=== PATIENT | male | born 1970 | race Caucasian/White ===

== ENCOUNTER 2020-05-16 17:07 | Emergency (ER) | payer MEDICAID, OTHER ==
[2020-05-16] MEDS ORDERED: LIDOCAINE 1%-EPI 1:100000 20 ML MDV SUBQ STA (17:28)
--- NOTE | 2020-05-16 18:37 | ED Physician Documentation ---
PD HPI UPPER EXT INJURY - Stated complaint Stated Complaint: LEFT HAND LAC - Chief complaint Chief Complaint: Laceration - History obtained from History obtained from: Patient - History of Present Illness Location: Left, Finger (Index) Type of injury: Laceration Where injury occurred: Home Timing - onset: How many hours ago (1), Today Timing - duration: Hours (1) Timing - details: Abrupt onset Pain level max: 3 Pain level now: 3 Improved by: Rest Worsened by: Moving, Palpating Associated symptoms: No: Weakness, Numbness, Tingling, Swelling Similar symptoms before: Has not had sx before Recently seen: Not recently seen - Additonal information Additional information: Last tetanus shot was 2 years ago Review of Systems Neurologic: denies: Focal weakness, Numbness PD PAST MEDICAL HISTORY - Past Medical History Cardiovascular: None Respiratory: None Derm: None - Past Surgical History Past Surgical History: Yes General: Appendectomy - Present Medications Home Medications: Ambulatory Orders Medication Instructions Recorded Confirmed No Known Home Medications 05/16/20 05/16/20 - Allergies Allergies/Adverse Reactions: Allergies Allergy/AdvReac Type Severity Reaction Status Date / Time No Known Drug Allergies Allergy Verified 05/16/20 17:10 - Social History Does the pt smoke?: No Smoking Status: Never smoker Does the pt drink ETOH?: No Does the pt have substance abuse?: No - Immunizations Immunizations are current?: Yes - POLST Patient has POLST: No PD ED PE NORMAL - Vitals Vital signs reviewed: Yes - General General: Alert and oriented X 3, No acute distress - Derm Derm: Warm and dry - Extremities Extremities: Other (L index finger - dorsum of the index finger, just distal to MCP joint. NVI. weakness with extension against resistance. ) - Neuro Neuro: Alert and oriented X 3 Results - Vitals Vitals: Vital Signs - 24 hr 05/16/20 05/16/20 17:11 18:43 Temperature 37.0 C Heart Rate 73 87 Respiratory 19 17 Rate Blood Pressure 137/99 H 136/89 H O2 Saturation 100 100 Oxygen O2 Source Room air Procedures - Laceration (location) L index Length in cm: 2 Wound type: Linear, Into subcut fat, Clean Neurovascular status: Sensory intact, Motor intact, Vascular intact Tendon involvement: Tendon Injury (appears to have some tendon injury, unable to clearly see the tendon.) Anesthesia: Lidocaine 1% with epi Wound Preparation: Irrigated copiously NS, Wound explored, To the base Skin layer closure: Nylon, Interrupted, Size #-0 - enter number (4) Other: Patient tolerated well, No complications, Neurovascular intact, Dressing applied, Tetanus UTD Complexity: Simple PD MEDICAL DECISION MAKING - ED course Complexity details: considered differential, d/w patient ED course: 49-year-old male with a left index finger laceration on the dorsum of the hand. Appears to have some tendon involvement, though I cannot clearly visualize this on evaluation of the wound. Does have weakness with extension against resistance. Discussed the case with Dr. Pandya, orthopedics who will follow up the patient in the office. We will close the skin today and place him in a splint. Will need reevaluation. Warnings of infection and instructions on wo und care given at bedside. Also counseled on how to minimize scarring. Patient counseled regarding signs and symptoms for which I believe and urgent re- evaluation would be necessary. Patient with good understanding of and agreement to plan and is comfortable going home at this time This document was made in part using voice recognition software. While efforts are made to proofread this document, sound alike and grammatical errors may occur. Departure - Departure Disposition: 01 Home, Self Care Clinical Impression: Finger laceration involving tendon Qualifiers: Encounter type: initial encounter Qualified Code(s): S61.219A - Laceration without foreign body of unspecified finger without damage to nail, initial encounter Condition: Good Instructions: ED Laceration Hand Follow-Up: Carlos Pandya MD [Provider Admit Priv/Credential] - [facility] [Provider Group] Comments: Keep the splint on until released by orthopedics. They will need to reexamine you and likely repair the tendon. Return if you worsen. I spoke with Dr. Ya rai. Discharge Date/Time: 05/16/20 18:50
[2020-05-16] MEDS ORDERED: BACITRACIN ZINC OINT 1 PACKET TOP STA (18:38)
[2020-05-16 18:43] VITALS: BP 136/89
== END 2020-05-16 18:50 | disposition home or self-care (01) ==
LOC: ED 17:07
DX: S61.211A Laceration without foreign body of left index finger without damage to nail, initial encounter (principal); S66.902A Unspecified injury of unspecified muscle, fascia and tendon at wrist and hand level, left hand, initial encounter; W22.09XA Striking against other stationary object, initial encounter; Y92.009 Unspecified place in unspecified non-institutional (private) residence as the place of occurrence of the external cause
CPT/HCPCS: 12001; 99281; 99283

== ENCOUNTER 2020-06-01 07:08 | Outpatient (CLI) | payer MEDICAID ==
--- NOTE | 2020-06-01 11:27 | MRI Report ---
PROCEDURE: Hand LT W/O INDICATIONS: FINGER LACERATION W/TENDON INVOLMENT TECHNIQUE: Noncontrast coronal T1 spin echo and T2 fast spin echo with fat saturation, axial proton density fast spin echo and T2 fast spin echo with fat saturation, sagittal T1 spin echo and STIR through the hand and fingers. COMPARISON: None FINDINGS: Image quality: Excellent. Bones: The bones are normally aligned, without marrow contusions or fractures. No intra-osseous les ions. Soft tissues: There is soft tissue edema involving the dorsal aspect of the index finger centered at the level of the MCP joint. There is complete rupture of the extensor indicis tendon, for example im age 1104/1001. The flexor tendons appear grossly intact. However, there is mild middle finger flexor tenosynovitis. IMPRESSION: Complete rupture/laceration of the extensor indicis tendon. Associated soft tissue edema and swelling . Mild middle finger flexor tenosynovitis, technically age indeterminate Reviewed by: Porfirio Marcum MD on 06/01/2020 11:25 AM PST Approved by: Porfirio Marcum MD on 06/01/2020 11:25 AM PST Station ID: [id number]
== END 2020-06-01 07:09 | disposition home or self-care (01) ==
LOC: DI 07:08
PROVIDERS: ATTEND Orthopaedic Surgery
DX: S66.321A Laceration of extensor muscle, fascia and tendon of left index finger at wrist and hand level, initial encounter (principal); M65.842 Other synovitis and tenosynovitis, left hand

== ENCOUNTER 2022-09-03 01:23 | Emergency (ER) | payer MEDICAID ==
--- NOTE | 2022-09-03 02:44 | ED Physician Documentation ---
PD HPI CHEST PAIN - Stated complaint Stated Complaint: RT RIB INJ - Chief complaint Chief Complaint: Trauma Ch/Bk - History obtained from History obtained from: Patient - Additional information Additional information: HPI from patient. c/o sudden onset right lower lateral chest wall pain three days ago when he slipped while walking outside of his house, striking right chest on rocks. He says the pain had been tolerable until earlier this evening when he sneezed, causing sudden significant increase in the pain . Pain is exacerbated with palpation and deep inspiration but denies shortness of breath Review of Systems Cardiac: reports: Chest pain / pressure (right chest wall pain) Respiratory: denies: Dyspnea, Cough, Hemoptysis, Wheezing GI: denies: Abdominal Pain PD PAST MEDICAL HISTORY - Past Medical History Cardiovascular: None Respiratory: None Derm: None - Past Surgical History Past Surgical History: Yes General: Appendectomy - Present Medications Home Medications: Ambulatory Orders Medication Instructions Recorded Confirmed Oxycodone HCl/Acetaminophen 1 - 2 each PO Q6H PRN #14 tablet 09/03/22 [Percocet 5-325 mg Tablet] - Allergies Allergies/Adverse Reactions: Allergies Allergy/AdvReac Type Severity Reaction Status Date / Time No Known Drug Allergies Allergy Verified 09/03/22 01:33 - Social History Does the pt smoke?: No Smoking Status: Never smoker Does the pt drink ETOH?: No Does the pt have substance abuse?: No - Immunizations Immunizations are current?: Yes - POLST Patient has POLST: No PD ED PE NORMAL - Vitals Vital signs reviewed: Yes - General General: Alert and oriented X 3, No acute distress, Well developed/nourished - Respiratory Respiratory: No respiratory distress, Clear bilaterally - Abdomen Abdomen: Soft, Non distended PD ED PE EXPANDED - Cardiac Cardiac: Chest wall TTP (right lower anterolateral chest wall TTP without crepitus) - Abdomen Abdomen: Tender to palpation, RUQ. No: Rebound, Guarding Results - Vitals Vitals: Oxygen O2 Source Room air - Labs Labs: Laboratory Tests 09/03/22 09/03/22 03:00 03:00 WBC 7.9 RBC 4.12 L Hgb 13.2 L Hct 39.3 L MCV 95.4 H MCH 32.0 H MCHC 33.6 RDW 12.7 Plt Count 216 MPV 8.8 Neut # (Auto) 5.1 Lymph # (Auto) 1.9 [place] # (Auto) 0.6 Eos # (Auto) 0.2 Baso # (Auto) 0.1 Absolute Nucleated RBC 0.00 Nucleated RBC % 0.0 Sodium 138 Potassium 3.6 Chloride 102 Carbon Dioxide 28 Anion Gap 8.0 BUN 14 Creatinine 0.9 Estimated GFR (MDRD) 89 Glucose 117 H Calcium 9.2 Total Bilirubin 0.4 AST 17 ALT 22 Alkaline Phosphatase 65 Total Protein 7.4 Albumin 4.2 Globulin 3.2 Albumin/Globulin Ratio 1.3 Lipase 36 - Rads (name of study) right ribs with PA chest Relevant Findings:: Prelim report reviewed, EMP independent interpretation of test (I reviewed these images and my interpretation is fractures of right 9th, 10th, and 11th ribs, no pneumothorax), See rad report CT A/P with IV contrast Relevant Findings:: Prelim report reviewed, EMP independent interpretation of test (I reviewed these images and my interpretation is minimally displaced fractures of 9th, 10th, and 11th ribs, no pneumothorax , no evidence of intraabdominal injury ), See rad report PD Medical Decision Making - ED course Complexity details: reviewed results, re-evaluated patient, considered differential, d/w patient ED course: fractures of 9th, 10th, and 11th right ribs noted on imaging (as above) without evidence of other injury including pneumothorax , intra-abdominal injury such as liver injury. IV established for IV contrast (for abdominal/pelvis CT), and basic blood tests were sent. No concerning findings on CBC, ER abdominal panel. He is given 1 mg dilaudid IV with good pain control, and 10mg PO oxycodone prior to d/c for gradual return of the pain. Results reviewed with patient, return precautions discussed Departure - Departure Disposition: 01 Home, Self Care Clinical Impression: Rib fractures Qualifiers: Encounter type: initial encounter Fracture type: closed Laterality: right Qualified Code(s): S22.41XA - Multiple fractures of ribs, right side, initial encounter for closed fracture Condition: Good Instructions: ED Fx Rib Prescriptions: Oxycodone HCl/Acetaminophen [Percocet 5-325 mg Tablet] 1 - 2 each PO Q6H PRN #14 tablet PRN Reason: pain Comments: The CT and the x-rays show fractures of the right ninth, 10th, and 11th ribs. Fortunately, there is no underlying injury; specifically, no evidence of injury to the lung nor of any of the internal organs of the abdomen such as the liver. I am prescribing a short course of narcotic pain medication for you. These are potentially dangerous and addictive medications that should be used carefully. These medications may constipate you. Take an wico-oxy-tccnixz stool softener (docusate) twice daily with plenty of water while taking these medications. If you go 24 hours without a bowel movement, take [id number] miralax, per package instructions. Do not drink or drive while taking these medications. If you received narcotic or sedating medications while in the emergency department, do not drive for 24 hours. Store this medication in a safe, secure place and out of reach of children. It is a violation of federal law to give or sell this medication to another person or to use in a manner other than prescribed. The ED will not refill narcotic prescriptions, including prescriptions lost or stolen. To dispose of unwanted medications: 1. [facility] at [address] [facility] in [place] has a medication drop box. They accept prescription medications (in pill form) Monday through Monday 9:00 a.m. to 5:00 p.m. 2. [facility] [employer] [facility] accepts prescription medications (in pill form only) for disposal year round. Call for more information. 3. Contact the [facility] for the next [facility] sponsored prescription drug collection event. , [phone], or [phone]; Discharge Date/Time: 09/03/22 05:30
[2022-09-03] MEDS ORDERED: HYDROmorphone 1 MG/ML CARPUJECT IVP STA (03:03)
[2022-09-03] MEDS ORDERED: iohexoL-300 100 ML VIAL ONE (03:11)
[2022-09-03 03:16] LABS: BASOPHILS # (AUTO) 0.1 10^3/uL (0.0-0.1); BASOPHILS % (AUTO) 0.6 %; EOSINOPHILS # (AUTO) 0.2 10^3/uL (0.0-0.7); EOSINOPHILS % (AUTO) 2.4 %; HCT - HEMATOCRIT 39.3 % (42.0-52.0); HGB - HEMOGLOBIN 13.2 g/dL (14.0-18.0); LYMPHOCYTES # (AUTO) 1.9 10^3/uL (1.5-3.5); MEAN CORPUSCULAR HGB CONC 33.6 g/dL (32.0-36.0); MEAN CORPUSCULAR VOLUME 95.4 fL (80.0-94.0); MEAN PLATELET VOLUME 8.8 fL (7.4-11.4); MONOCYTES # (AUTO) 0.6 10^3/uL (0.0-1.0); MONOCYTES % (AUTO) 7.4 %; NEUTROPHILS # (AUTO) 5.1 10^3/uL (1.5-6.6); NEUTROPHILS % (AUTO) 65.3 %; PLT - PLATELET COUNT 216 10^3/uL (130-450); RED BLOOD COUNT 4.12 10^6/uL (4.70-6.10); RED CELL DISTRIBUTION WIDTH 12.7 % (12.0-15.0); WHITE BLOOD COUNT 7.9 x10^3/uL (4.8-10.8)
[2022-09-03 03:29] LABS: ALBUMIN 4.2 g/dL (3.2-5.5); ALBUMIN/GLOBULIN RATIO 1.3 (1.0-2.2); BILIRUBIN,TOTAL 0.4 mg/dL (0.2-1.0); CALCIUM 9.2 mg/dL (8.5-10.3); CREATININE 0.9 mg/dL (0.6-1.2); POTASSIUM 3.6 mmol/L (3.5-5.0); TOTAL PROTEIN 7.4 g/dL (6.7-8.2)
[2022-09-03] MEDS: iohexoL-300 100 ML VIAL IVP ONE ×2 (04:08→07:52)
[2022-09-03 05:18] VITALS: BP 128/79
[2022-09-03] MEDS ORDERED: oxyCODONE 5 MG TABLET PO STA (05:21)
--- NOTE | 2022-09-03 10:16 | CT Report ---
PROCEDURE: ABDOMEN/PELVIS W INDICATIONS: fall, right low chest/RUQ pain, tenderness CONTRAST: : 100 ML OMNI 300 TECHNIQUE: After the administration of IV contrast, 5 mm thick sections acquired from the diaphragms to the symp hysis. 5 mm thick coronal and sagittal reformats were acquired. For radiation dose reduction, the f ollowing was used: automated exposure control, adjustment of mA and/or kV according to patient size. COMPARISON: Correlation is made with the accompanying rib plain films. FINDINGS: Image quality: Excellent. Lung bases and heart: Unremarkable. Liver: Unremarkable. Gallbladder and biliary tree: Within normal limits. Spleen: Unremarkable. Pancreas: Unremarkable. Adrenals: Unremarkable. Kidneys and ureters: Unremarkable. Bowel and peritoneum: No bowel distension. No pathologic free fluid. Lymph nodes: No central or retroperitoneal adenopathy. Vessels: Unremarkable. PELVIS Reproductive organs: Unremarkable. Bladder: Unremarkable. Lymph nodes: Unremarkable. Bones: Mildly displaced right posterior 11th and 12th rib fractures can be seen. No additional fractu res are seen. Other: None. IMPRESSION: Mildly displaced right posterior 11th and 12th rib fractures. No associated liver or kidney laceration can be seen. Note: No significant discrepancy from the preliminary report. Reviewed by: Dilip Cox MD on 09/03/2022 9:15 AM ELIAS Approved by: Dilip Cxo MD on 09/03/2022 9:15 AM ELIAS Station ID: [id number]
--- NOTE | 2022-09-03 10:30 | XRAY Report ---
PROCEDURE: Ribs w/PA Chest RT INDICATIONS: fall, right chest wall pain, tenderness TECHNIQUE: 4 views of the right ribs were acquired, along with a single view chest. COMPARISON: Correlation is made with the subsequently performed abdomen and pelvis CT. FINDINGS: Surgical changes and devices: None. Bones and chest wall: Mildly displaced fractures can be seen involving the right inferolateral ninth through 12th ribs. No suspicious bony lesions. Overlying soft tissues appear unremarkable. Lungs and pleura: No pleural effusions or pneumothorax. Lungs appear clear. Mediastinum: Mediastinal contours appear normal. Heart size is normal. IMPRESSION: Right ninth through 11th rib fractures. No associated pneumothorax is seen. Note: No significant discrepancy from the preliminary report. Reviewed by: Dilip Cox MD on 09/03/2022 9:29 AM ELIAS Approved by: Dilip Cox MD on 09/03/2022 9:29 AM ELIAS Station ID: [id number]
== END 2022-09-03 05:30 | disposition home or self-care (01) ==
LOC: ED 01:23
DX: S22.41XA Multiple fractures of ribs, right side, initial encounter for closed fracture (principal); W01.198A Fall on same level from slipping, tripping and stumbling with subsequent striking against other object, initial encounter; Y93.01 Activity, walking, marching and hiking; Y92.008 Other place in unspecified non-institutional (private) residence as the place of occurrence of the external cause
CPT/HCPCS: 36415; 71101; 74177; 80053; 83690; 85025; 96374; 99284; A9270; J1170; Q9967